=== PATIENT | female | born 1990 | race African-American/Black ===

== ENCOUNTER 2018-01-31 19:27 | Outpatient (CLI) | payer OTHER ==
[2018-01-31 20:33] LABS: MEAN CORPUSCULAR HEMOGLOBIN 32.1 pg (27.0-34.8); MEAN CORPUSCULAR HGB CONC 33.9 g/dL (32.4-35.8); MEAN CORPUSCULAR VOLUME 94.7 fL (80-100); MEAN PLATELET VOLUME 7.8 fL (7.4-10.4); PLATELET COUNT 315 x10^3/uL (130-400); RED CELL DISTRIBUTION WIDTH 13.8 % (9.6-15.2)
== END 2018-01-31 21:52 | disposition home or self-care (01) ==
LOC: LDOP 19:27
PROVIDERS: ATTEND Obstetrics & Gynecology
DX: O36.8120 Decreased fetal movements, second trimester, not applicable or unspecified (principal); Z3A.22 22 weeks gestation of pregnancy
CPT/HCPCS: 36415; 59025; 76805; 85027; 85460; 86592; 86762; 86850; 86900; 87340; 87806; 99201; G0463; G0475